=== PATIENT | female | born 1970 | race Caucasian/White ===

== ENCOUNTER → 2022-05-09 | Outpatient (CLI) | payer OTHER, SELFPAY ==
[2022-05-09 15:48] LABS: Hepatitis B Surface Antibody Reactive
[2022-05-11 10:07] LABS: HEPATITIS B SURFACE AG Negative (Negative); Hep C Antibodies <0.1 s/co ratio (0.0-0.9); Hepatitis A IgM Antibody Negative (Negative); Hepatitis B Core AB IgM Negative (Negative); Thyroid Peroxidase AB 25 IU/mL (0-34)
[2022-05-11 14:55] LABS: Hepatitis A AB, Total Positive (Negative)
[2022-05-12 07:58] LABS: PTHIN 28.1 pg/mL (18.4-80.1)
[2022-05-12 20:11] LABS: ANTINUCLEAR ANTIBODIES DIRECT Negative (Negative); Anti-dsDNA Ab 1 IU/mL (0-9)
== END | disposition home or self-care (01) ==
LOC: MTLAB 11:38
PROVIDERS: PCP Nurse Practitioner Family; Referring Provider Dermatology Pediatric Dermatology; Visit Provider Dermatology Pediatric Dermatology
DX: L66.8 Other cicatricial alopecia (principal)
CPT/HCPCS: 36415; 80074; 83970; 86038; 86225; 86376; 86706; 86708